=== PATIENT | male | born 1975 | race Caucasian/White ===

== ENCOUNTER 2017-01-05 08:50 | Emergency (ER) | payer BC ==
--- NOTE | 2017-01-05 09:12 | EDM.PDOC ---
ED HPI GENERAL MEDICAL PROBLEM - General Chief Complaint: ENT Problem Stated Complaint: ILL, SORE THROAT Time Seen by Provider: 01/05/17 09:07 - History of Present Illness INITIAL COMMENTS - FREE TEXT/NARRATIVE: HISTORY AND PHYSICAL: History of present illness: Patient is a 41-year-old white male presents with cough congestion and sore throat x4 days he denies fever chills nausea vomiting or other complaints Review of systems: As per history of present illness and below otherwise all systems reviewed and negative. Past medical history: As per history of present illness and as reviewed below otherwise noncontributory. Surgical history: As per history of present illness and as reviewed below otherwise noncontributory. Social history: No reported history of drug or alcohol abuse. Family history: As per history of present illness and as reviewed below otherwise noncontributory. Physical exam: HEENT: Atraumatic, normocephalic, pupils reactive, negative for conjunctival pallor or scleral icterus, mucous membranes moist, throat injected, neck supple , nontender, trachea midline. Lungs: Clear to auscultation, breath sounds equal bilaterally, chest nontender. Heart: S1S2, regular, negative for clicks, rubs, or JVD. Abdomen: Soft, nondistended, nontender. Negative for masses or hepatosplenomegaly. Negative for costovertebral tenderness. Pelvis: Stable nontender. Genitourinary: Deferred. Rectal: Deferred. Extremities: Atraumatic, negative for cords or calf pain. Neurovascular unremarkable. Neuro: Awake, alert, oriented. Cranial nerves II through XII unremarkable. Cerebellum unremarkable. Motor and sensory unremarkable throughout. Exam nonfocal. Diagnostics: Chest x-ray Therapeutics: None Impression: #1 pneumonitis #2 pharyngitis Definitive disposition and diagnosis as appropriate pending reevaluation and review of above. throat Pain Score (Numeric/FACES): 4 - Related Data Allergies Allergy/AdvReac Type Severity Reaction Status Date / Time No Known Allergies Allergy Verified 01/05/17 08:58 Home Meds: Home Meds FLUoxetine [PROzac] 40 mg PO DAILY 03/12/16 [History] Past Medical History HEENT History: Reports: None Cardiovascular History: Reports: None Respiratory History: Reports: None Gastrointestinal History: Reports: None Genitourinary History: Reports: None Musculoskeletal History: Reports: None Neurological History: Reports: None Other Neuro History: syncopal episodes for the last 7 months. Psychiatric History: Reports: Anxiety, Bipolar, Depression Endocrine/Metabolic History: Reports: None Other Endocrine/Metabolic History: patient does believe he has had episodes of hypoglycemia Hematologic History: Reports: None Immunologic History: Reports: None Oncologic (Cancer) History: Reports: None Dermatologic History: Reports: None - Infectious Disease History Infectious Disease History: Reports: Chicken Pox - Past Surgical History GI Surgical History: Reports: Appendectomy, Bariatric Procedure Social & Family History - Family History Family Medical History: Noncontributory Cardiac: Reports: Bypass, Stent - Tobacco Use Smoking Status *Q: Former Smoker Years of Tobacco use: 25 Packs/Tins Daily: 0.5 Used Tobacco, but Quit: No - Caffeine Use Caffeine Use: Reports: Coffee, Energy Drinks, Soda - Recreational Drug Use Recreational Drug Use: No ED ROS GENERAL - Review of Systems Review Of Systems: ROS reveals no pertinent complaints other than HPI. ED EXAM, GENERAL - Physical Exam Exam: See Below (See dictation) Course - Vital Signs Last Recorded V/S: Last Vital Signs Temp 36.1 C 01/05/17 08:59 Pulse 63 01/05/17 08:59 Resp 16 01/05/17 08:59 BP 122/71 01/05/17 08:59 Pulse Ox 97 01/05/17 08:59 - Orders/Labs/Meds Orders: Active Orders 24 hr Category Date Time Status Chest 2V [CR] Stat Exams 01/05/17 09:09 Ordered Departure - Departure Time of Disposition: 09:11 Disposition: Home, Self-Care 01 Condition: good Clinical Impression: Pneumonitis, Pharyngitis - Discharge Information Forms: ED Department Discharge Additional Instructions: The following information is given to patients seen in the emergency department who are being discharged to home. This information is to outline your options for follow-up care. We provide all patients seen in our emergency department with a follow-up referral. The need for follow-up, as well as the timing and circumstances, are variable depending upon the specifics of your emergency department visit. If you don't have a primary care physician on staff, we will provide you with a referral. We always advise you to contact your personal physician following an emergency department visit to inform them of the circumstance of the visit and for follow-up with them and/or the need for any referrals to a consulting specialist. The emergency department will also refer you to a specialist when appropriate. This referral assures that you have the opportunity for followup care with a specialist. All of these measure are taken in an effort to provide you with optimal care, which includes your followup. Under all circumstances we always encourage you to contact your private physician who remains a resource for coordinating your care. When calling for followup care, please make the office aware that this follow-up is from your recent emergency room visit. If for any reason you are refused follow-up, please contact the [facility] emergency department at and asked to speak to the emergency department charge nurse. [facility] [address] [place] [id number] Augmentin albuterol Tylenol with codeine syrup as directed call schedule routine appointment with private medical doctor and/or clinic above return as needed as discussed - My Orders Last 24 Hours: My Active Orders 01/05/17 09:09 Chest 2V [CR] Stat - Assessment/Plan Last 24 Hours: My Active Orders 01/05/17 09:09 Chest 2V [CR] Stat
[2017-01-05 09:38] VITALS: BP 117/74
--- NOTE | 2017-01-07 14:25 | CR ---
EXAM DATE: 01/05/17 PATIENT'S AGE: 41 Patient: CEFERINO DUEÑAS Facility: [place], [place] Site . Site : 1975 Study: XRay Chest [id number]/20/2017 9:20:16 AM Ordering Physician: Nancy Bowers Final Report: INDICATION: COUGH AND SORE THROAT SINCE SATURDAY INDICATION: Cough. Sore throat. TECHNIQUE: Chest 2 views. COMPARISON: None FINDINGS: Cardiovascular and mediastinum: Heart size and vasculature are normal in caliber and appearance. Mediastinum is within normal limits. Lungs and pleural spaces: Lungs are clear. No sign of infiltrate or mass. No sign of pleural effusion. No pneumothorax. Bones and soft tissues: No significant findings. IMPRESSION: Lungs are clear. Dictated by Ramiro Branch MD @ 01/05/2017 9:23:52 AM Dictated by: Ramiro Branch MD @ 01/05/2017 09:23:56 (Electronic Signature) Report Signed by Proxy. [facility]ENTER[facility]chell
== END 2017-01-05 09:35 | disposition home or self-care (01) ==
LOC: MW.ED 08:50
DX: J18.9 Pneumonia, unspecified organism (principal); J02.9 Acute pharyngitis, unspecified; F31.9 Bipolar disorder, unspecified; F41.9 Anxiety disorder, unspecified; Z90.49 Acquired absence of other specified parts of digestive tract; Z98.84 Bariatric surgery status; Z87.891 Personal history of nicotine dependence
CPT/HCPCS: 71020; 71020-26; 99283

== ENCOUNTER 2017-12-02 19:40 | Emergency (ER) | payer BC ==
[~2017-12-02 19:40] MED LIST: Succinylcholine 200 MG/10 ML MDV ONE
--- NOTE | 2017-12-02 19:46 | EDM.PDOC ---
ED HPI GENERAL MEDICAL PROBLEM - General Stated Complaint: OVERDOSE Time Seen by Provider: 12/02/17 20:27 - History of Present Illness INITIAL COMMENTS - FREE TEXT/NARRATIVE: HISTORY AND PHYSICAL: History of present illness: Patient's 42-year-old white male who presents status post intentional overdose in which the patient thought 10-15 clonazepam and was using alcohol he states he did this in a suicide attempt related to overwhelming anxiety. He denies any other ingestion or concern Review of systems: As per history of present illness and below otherwise all systems reviewed and negative. Past medical history: As per history of present illness and as reviewed below otherwise noncontributory. Surgical history: As per history of present illness and as reviewed below otherwise noncontributory. Social history: No reported history of drug or alcohol abuse. Family history: As per history of present illness and as reviewed below otherwise noncontributory. Physical exam: HEENT: Atraumatic, normocephalic, pupils reactive, negative for conjunctival pallor or scleral icterus, mucous membranes moist, throat clear, neck supple, nontender, trachea midline. Lungs: Clear to auscultation, breath sounds equal bilaterally, chest nontender. Heart: S1S2, regular, negative for clicks, rubs, or JVD. Abdomen: Soft, nondistended, nontender. Negative for masses or hepatosplenomegaly. Negative for costovertebral tenderness. Pelvis: Stable nontender. Genitourinary: Deferred. Rectal: Deferred. Extremities: Atraumatic, negative for cords or calf pain. Neurovascular unremarkable. Neuro: Awake, answers questions appropriately and follows commands and moves all extremities is limited grossly nonfocal exam Diagnostics: CBC CMP PT/INR chest x-ray EKG aspirin Tylenol level UA urine drug screen EtOH Therapeutics: The O2 monitor Impression: #1 depressive episode with overdose/suicide attempt Definitive disposition and diagnosis as appropriate pending reevaluation and review of above. - Related Data Allergies Allergy/AdvReac Type Severity Reaction Status Date / Time No Known Allergies Allergy Verified 01/05/17 08:58 Home Meds: Home Meds FLUoxetine [PROzac] 40 mg PO DAILY 03/12/16 [History] Past Medical History HEENT History: Reports: None Cardiovascular History: Reports: None Respiratory History: Reports: None Gastrointestinal History: Reports: None Genitourinary History: Reports: None Musculoskeletal History: Reports: None Neurological History: Reports: None Other Neuro History: syncopal episodes for the last 7 months. Psychiatric History: Reports: Anxiety, Bipolar, Depression Endocrine/Metabolic History: Reports: None Other Endocrine/Metabolic History: patient does believe he has had episodes of hypoglycemia Hematologic History: Reports: None Immunologic History: Reports: None Oncologic (Cancer) History: Reports: None Dermatologic History: Reports: None - Infectious Disease History Infectious Disease History: Reports: Chicken Pox - Past Surgical History GI Surgical History: Reports: Appendectomy, Bariatric Procedure Social & Family History - Family History Family Medical History: Noncontributory Cardiac: Reports: Bypass, Stent - Tobacco Use Smoking Status *Q: Former Smoker Years of Tobacco use: 25 Packs/Tins Daily: 0.5 Used Tobacco, but Quit: No - Caffeine Use Caffeine Use: Reports: Coffee, Energy Drinks, Soda - Recreational Drug Use Recreational Drug Use: No ED ROS GENERAL - Review of Systems Review Of Systems: ROS reveals no pertinent complaints other than HPI. ED EXAM, GENERAL - Physical Exam Exam: See Below (dictation) Course - Vital Signs Last Recorded V/S: Last Vital Signs Temp 36.9 C 12/02/17 19:40 Pulse 89 12/02/17 19:40 Resp 18 12/02/17 19:40 BP 152/105 H 12/02/17 19:40 Pulse Ox 96 12/02/17 19:40 - Orders/Labs/Meds Orders: Active Orders 24 hr Category Date Time Status EKG Documentation Completion [RC] STAT Care 12/02/17 19:53 Active Chest 1V Frontal [CR] Stat Exams 12/02/17 19:55 Taken ACETAMINOPHEN [CHEM] Stat Lab 12/02/17 19:43 Results COMPREHENSIVE METABOLIC PN,CMP [CHEM] Stat Lab 12/02/17 19:43 Results DRUG SCREEN, URINE [URCHEM] Stat Lab 12/02/17 19:53 Ordered ETHANOL BLOOD MEDICAL [CHEM] Stat Lab 12/02/17 19:43 Results MAGNESIUM [CHEM] Stat Lab 12/02/17 19:43 Results SALICYLATE [CHEM] Stat Lab 12/02/17 19:43 Results TSH [CHEM] Stat Lab 12/02/17 19:43 Results UA W/MICROSCOPIC [URIN] Stat Lab 12/02/17 19:53 Ordered Labs: Laboratory Tests 04/16/18 04/16/18 Range/Units 19:43 19:43 WBC 6.80 (4.0-11.0) K/uL RBC 5.75 (4.50-5.90) M/uL Hgb 18.1 H (13.0-17.0) g/dL Hct 54.1 H (38.0-50.0) % MCV 94.1 (80.0-98.0) fL MCH 31.5 (27.0-32.0) pg MCHC 33.5 (31.0-37.0) g/dL RDW Std Deviation 46.4 (28.0-62.0) fl RDW Coeff of Johnna 14 (11.0-15.0) % Plt Count 209 (150-400) K/uL MPV 9.10 (7.40-12.00) fL Neut % (Auto) 60.2 (48.0-80.0) % Lymph % (Auto) 23.8 (16.0-40.0) % Dewitt % (Auto) 10.3 (0.0-15.0) % Eos % (Auto) 4.4 (0.0-7.0) % Baso % (Auto) 1.3 (0.0-1.5) % Neut # (Auto) 4.1 (1.4-5.7) K/uL Lymph # (Auto) 1.6 (0.6-2.4) K/uL Dewitt # (Auto) 0.7 (0.0-0.8) K/uL Eos # (Auto) 0.3 (0.0-0.7) K/uL Baso # (Auto) 0.1 (0.0-0.1) K/uL Nucleated RBC % 0.0 /100WBC Nucleated RBCs # 0 K/uL Sodium 143 (136-148) mmol/L Potassium 4.2 (3.5-5.1) mmol/L Chloride 104 (98-107) mmol/L Carbon Dioxide 28.5 (21.0-32.0) mmol/L BUN 9 (7.0-18.0) mg/dL Creatinine 1.0 (0.8-1.3) mg/dL Est Cr Clr Drug Dosing TNP Estimated GFR (MDRD) > 60.0 ml/min Glucose 105 (74-106) mg/dL Calcium 9.0 (8.5-10.1) mg/dL Magnesium 1.4 L (1.5-2.0) mg/dL Total Bilirubin 0.8 (0.2-1.0) mg/dL AST 114 H (15-37) IU/L ALT 98 H (14-63) IU/L Alkaline Phosphatase 125 H (46-116) U/L Total Protein 7.8 (6.4-8.2) g/dL Albumin 4.1 (3.4-5.0) g/dL Globulin 3.7 H (2.0-3.5) g/dL Albumin/Globulin Ratio 1.1 L (1.3-2.8) TSH 3rd Generation 1.04 (0.36-3.74) uIU/mL Ethyl Alcohol 241 mg/dL Departure - Departure Time of Disposition: 20:27 Disposition: DC/Tfer to Acute Hospital 02 Condition: Good Clinical Impression: Depression, Suicide attempt by drug ingestion, Alcohol abuse - Discharge Information - My Orders Last 24 Hours: My Active Orders 12/02/17 19:43 ACETAMINOPHEN [CHEM] Stat COMPREHENSIVE METABOLIC PN,CMP [CHEM] Stat ETHANOL BLOOD MEDICAL [CHEM] Stat MAGNESIUM [CHEM] Stat SALICYLATE [CHEM] Stat TSH [CHEM] Stat 12/02/17 19:53 EKG Documentation Completion [RC] STAT DRUG SCREEN, URINE [URCHEM] Stat UA W/MICROSCOPIC [URIN] Stat 12/02/17 19:55 Chest 1V Frontal [CR] Stat - Assessment/Plan Last 24 Hours: My Active Orders 12/02/17 19:43 ACETAMINOPHEN [CHEM] Stat COMPREHENSIVE METABOLIC PN,CMP [CHEM] Stat ETHANOL BLOOD MEDICAL [CHEM] Stat MAGNESIUM [CHEM] Stat SALICYLATE [CHEM] Stat TSH [CHEM] Stat 12/02/17 19:53 EKG Documentation Completion [RC] STAT DRUG SCREEN, URINE [URCHEM] Stat UA W/MICROSCOPIC [URIN] Stat 12/02/17 19:55 Chest 1V Frontal [CR] Stat
[2017-12-02 20:26] LABS: CHLORIDE,CL 104 mmol/L (98-107); SODIUM,NA 143 mmol/L (136-148)
[2017-12-02 20:38] VITALS: BP 134/96
--- NOTE | 2017-12-03 11:22 | CR ---
EXAM DATE: 12/02/17 PATIENT'S AGE: 42 Patient: CEFERINO DUEÑAS Facility: [place], [place] Site . Site : 1975 Study: XRay Chest [id number]/16/2018 8:21:02 PM Ordering Physician: Nancy Bowers Final Report: Indication: Psychiatric evaluation Technique: Chest 1 view. Comparison: January 05, 2017 Findings: Cardiovascular and mediastinum: Heart size and vasculature are normal in caliber and appearance. Mediastinum is within normal limits. Lungs and pleural space: Lungs are clear. No sign of infiltrate or mass. No sign of pleural effusion. No pneumothorax. Bones and soft tissues: No significant findings. Impression: No sign of acute disease. Dictated by Rachel Freeman MD @ Dec 02 2017 8:29PM (Electronic Signature) Report Signed by Proxy. [facility]
== END 2017-12-02 20:40 ==
LOC: MW.ED 19:40
DX: T42.4X2A Poisoning by benzodiazepines, intentional self-harm, initial encounter (principal); F32.9 Major depressive disorder, single episode, unspecified; F10.10 Alcohol abuse, uncomplicated; Y90.8 Blood alcohol level of 240 mg/100 ml or more; Z87.891 Personal history of nicotine dependence; Z79.899 Other long term (current) drug therapy
CPT/HCPCS: 71045; 80053; 83735; 84443; 85025; 93005; 99285; G0480; J0330